=== PATIENT | male | born 1960 | race Caucasian/White ===

== ENCOUNTER 2016-06-15 19:52 | Emergency (ER) | payer BC ==
[~2016-06-15] VITALS: Ht 177.8 cm; Wt 105.0 kg
[~2016-06-15 19:52] MED LIST: ASPI1TAB7 PO; CITA20TA4 PO; FORT10GE TOP; HYDR-3580 PO; LISI-360 PO; PRAV40TA PO
[2016-06-15 19:57] VITALS: BP 158/84; PULSE 98; RESP 14; TEMP 98.4; O2SAT 96
[2016-06-15 20:07] VITALS: BP 142/86; PULSE 79; RESP 18; O2SAT 93
[2016-06-15] MEDS ORDERED: SODIUM CHLOR 0.9% 1000 ML INJ 1,000 ML IV ONE (20:13)
[2016-06-15] MEDS ORDERED: PRAV40TA2 PO (20:14)
[2016-06-15] MEDS ORDERED: TEST2.5G TOPICAL (20:14)
[2016-06-15] MEDS ORDERED: LISI10TA3 PO (20:14)
[2016-06-15] MEDS ORDERED: CITA20TA4 PO (20:14)
[2016-06-15] MEDS ORDERED: SODIUM CHLORIDE 0.9% FLUSH 5 ML FLUSH IVF PRN (20:15)
--- NOTE | 2016-06-15 20:19 | PD ---
HPI Chief Complaint: Syncope/Near-Syncope Time Seen by Provider: 20:07 Travel History International Travel<30 days: No Contact w/Intl Traveler<30days: No Traveled to known affect area: No History of Present Illness HPI The patient is a 56 years old. He arrives after having lost consciousness at home while on a barstool. He fell to the ground striking his forehead. After landing on the ground he remained unconscious for about 30 seconds as witnessed by his . His eyes were rolled into the back of his head and his head was shaking somewhat as described by . There was no tongue laceration or oropharyngeal trauma. The patient had no fecal or urinary incontinence. She activated EMS and the patient was brought here. While in the waiting room he had a second period of loss of consciousness, similar to the prior induration in quality. He has no history of epilepsy. He reports taking DayQuil for the past 2 days due to URI symptoms. The majority of the day was spent in bed today. In the ER the patient has no chest pain or shortness of breath. He has a very mild headache which he attributes to the frontal head trauma. Subjective fever reported today. No EtOH today. He reports a stress test within the past few months with normal results/low annual risk. PFSH Past Medical History Arthritis: Yes Asthma: No Autoimmune Disease: No Anxiety: Yes Depression: No Heart Rhythm Problems: No Cancer: No Cardiovascular Problems: No High Cholesterol: Yes Chemotherapy: No Chest Pain: No Congestive Heart Failure: No COPD: No Cerebrovascular Accident: No Diabetes: No Endocrine: No GERD: No Genitourinary: Yes (STENT IN URETER) Hepatitis: No Hiatal Hernia: Yes (UMBILICAL HERNIA) Hypertension: Yes Immune Disorder: No Kidney Stones: No Musculoskeletal: Yes (OSTEOARTHRITIS MAXINE KNEES) Neurologic: No Psychiatric: Yes (ANXIETY) Reproductive: No Respiratory: No Migraines: No Radiation Therapy: No Seizures: No Sickle Cell Disease: No Sleep Apnea: No Thyroid Disease: No Triglycerides - High: Yes Ulcer: No Past Surgical History Abdominal Surgery: No AICD: No Arteriovenous Shunt: No Body Medical Devices: NONE Cardiac Surgery: No Ear Surgery: No Endocrine Surgery: No Eye Surgery: No Genitourinary Surgery: Yes (VASECTOMY 1991) Gynecologic Surgery: Yes (J STENT IN URETER, VASECTOMY) Insulin Pump: No Joint Replacement: No Oral Surgery: Yes (TONSILLECTOMY) Pacemaker: No Thoracic Surgery: No Tonsillectomy: Yes Social History Alcohol Use: Yes (EVERY DAY X 2 DRINKS) Tobacco Use: No Substance Use: No Allergies-Medications (Allergen,Severity, Reaction): Coded Allergies: No Known Allergies (Verified , 06/15/16) Reported Meds & Prescriptions Reported Meds & Active Scripts Active Tamiflu (Oseltamivir Phosphate) 75 Mg Cap 75 Mg PO BID 7 Days Cefuroxime (Cefuroxime Axetil) 500 Mg Tab 500 Mg PO BID 7 Days Reported Testosterone Topical (Testosterone) 50 Mg/5 Gm Gel 50 Mg TOPICAL DAILY Citalopram (Citalopram Hydrobromide) 20 Mg Tab 20 Mg PO DAILY Pravastatin 40 Mg Tab 40 Mg PO DAILY Lisinopril 10 Mg Tab 10 Mg PO DAILY Review of Systems Except as stated in HPI: all other systems reviewed are Neg Physical Exam Narrative GENERAL: 56 yo M, NAD, AOx3, WNWD SKIN: Warm and dry. Trace abrasion abrasion nasal bridge and L upper lip without laceration. HEAD: Atraumatic. Normocephalic. EYES: Pupils equal and round. No scleral icterus. No injection or drainage. ENT: No nasal bleeding or discharge. Mucous membranes pink and moist. NECK: Trachea midline. No JVD. CARDIOVASCULAR: Regular rate and rhythm. RESPIRATORY: No accessory muscle use. Clear to auscultation. Breath sounds equal bilaterally. GASTROINTESTINAL: Abdomen soft, non-tender, nondistended. Hepatic and splenic margins not palpable. MUSCULOSKELETAL: Extremities without clubbing, cyanosis, or edema. No obvious deformities. NEUROLOGICAL: Awake and alert. No obvious cranial nerve deficits. Motor grossly within normal limits. Five out of 5 muscle strength in the arms and legs. Normal speech. PSYCHIATRIC: Appropriate mood and affect; insight and judgment normal. Data Data Last Documented VS Vital Signs Date Time Temp Pulse Resp B/P Pulse Ox O2 Delivery O2 Flow Rate FiO2 06/15/16 22:34 94 18 155/80 95 Room Air 06/15/16 19:57 98.4 VS reviewed Orders Electrocardiogram (06/15/16 20:13) Basic Metabolic Panel (Bmp) (06/15/16 20:13) Complete Blood Count With Diff (06/15/16 20:13) Ckmb (Isoenzyme) Profile (06/15/16 20:13) Troponin I (06/15/16 20:13) Ct Brain W/O Iv Contrast(Rout) (06/15/16 20:13) Blood Glucose (06/15/16 20:13) Ecg Monitoring (06/15/16 20:13) Iv Access Insert/Monitor (06/15/16 20:13) Oximetry (06/15/16 20:13) Sodium Chloride 0.9% Flush (Ns Flush) (06/15/16 20:15) Sodium Chlor 0.9% 1000 Ml Inj (Ns 1000 M (06/15/16 20:13) Influenzae A/B Antigen (06/15/16 20:19) Ventilation & Perfusion Scan (06/15/16 ) CKMB (06/15/16 20:20) CKMB% (06/15/16 20:20) Chest, Single Ap (06/15/16 ) Cefuroxime (Ceftin) (06/15/16 23:00) Oseltamivir (Tamiflu) (06/15/16 23:00) Labs Laboratory Tests Test 06/15/16 20:20 White Blood Count 5.5 TH/MM3 Red Blood Count 5.82 MIL/MM3 Hemoglobin 16.9 GM/DL Hematocrit 50.1 % Mean Corpuscular Volume 86.1 FL Mean Corpuscular Hemoglobin 29.0 PG Mean Corpuscular Hemoglobin 33.7 % Concent Red Cell Distribution Width 14.4 % Platelet Count 90 TH/MM3 Mean Platelet Volume 9.2 FL Neutrophils (%) (Auto) 74.2 % Lymphocytes (%) (Auto) 15.5 % Monocytes (%) (Auto) 9.8 % Eosinophils (%) (Auto) 0.1 % Basophils (%) (Auto) 0.4 % Neutrophils # (Auto) 4.1 TH/MM3 Lymphocytes # (Auto) 0.8 TH/MM3 Monocytes # (Auto) 0.5 TH/MM3 Eosinophils # (Auto) 0.0 TH/MM3 Basophils # (Auto) 0.0 TH/MM3 CBC Comment AUTO DIFF Differential Total Cells 100 Counted Neutrophils % (Manual) 51 % Band Neutrophils % 27 % Lymphocytes % 13 % Monocytes % 6 % Neutrophils # (Manual) 4.5 TH/MM3 Metamyelocytes 3 % Differential Comment FINAL DIFF MANUAL Platelet Estimate LOW Platelet Morphology Comment CLUMPED Red Cell Morphology Comment NORMAL Sodium Level 138 MEQ/L Potassium Level 3.8 MEQ/L Chloride Level 103 MEQ/L Carbon Dioxide Level 26.3 MEQ/L Anion Gap 9 MEQ/L Blood Urea Nitrogen 17 MG/DL Creatinine 1.89 MG/DL Estimat Glomerular Filtration 37 ML/MIN Rate Random Glucose 124 MG/DL Calcium Level 8.6 MG/DL Total Creatine Kinase 170 U/L Creatine Kinase MB LESS THAN 0.5 NG/ML Troponin I LESS THAN 0.02 NG/ML MDM Medical Decision Making Medical Screen Exam Complete: Yes Emergency Medical Condition: Yes Medical Record Reviewed: Yes Differential Diagnosis Arrhythmia, vasovagal episode, anemia, hypotension, AAA, PE, ICH, fracture, occult infectious states, meningitis/encephalitis considered very unlikely Narrative Course EKG: NS, rate 82, no pre-excitation syndrome, no ischemic injury pattern Head CT: no acute injury/disease CBC & BMP Diagram 06/15/16 20:20 Band neutrophils 27% We had a long discussion about the patient's presentation, work up and careful discussion about a safe disposition. Pt has remained stable throughout his ER stay in the echo pod and prefers to go home. Fortunately he has excellent follow up with Dr Grant and he and his verbalized agreement to see her first thing in the morning. Band neutrophilia is of indeterminant significance though concerning for infectious process. Some of symptoms could reflect influenza. Assay could be false negative and empiric coverage with Tamiflu is considered reasonable. Ceftin additionally may confer somewhat broad spectrum coverage for possible bacterial etiologies and is preferred over standard arrhythmogenic agents as the patient is on citalopram. Family demonstrates good insight and are considered quite reliable. Strict return guidelines discussed in length. Critical Care Narrative Aggregate critical care time was 35 minutes. Time to perform other separately billable procedures was not included in the critical care time. My time did not include minutes spent treating any other patients simultaneously or on activities that did not directly contribute to the patient's treatment. The services I provided to this patient were to treat and/or prevent clinically significant deterioration that could result in: Inappropriate disposition with corollary risks inherent therein including arrhythmia, recurrent syncope, cardiopulmonary arrest and being lost to follow up I provided critical care services requiring my management, as noted below: Chart data review, documentation time, medication orders and management, vital sign assessments/reviewing monitor data, ordering and reviewing lab tests, ordering and interpreting/reviewing x-rays and diagnostic studies, care of the patient and discussion of the patient with the admitting physicians. Diagnosis Primary Impression: Seizure Additional Impressions: Loss of consciousness Bandemia without diagnosis of specific infection Referrals: DR GRANT 1 day Additional Instructions: You have a choice when it comes to health care, and we are glad that you chose [facility]. Hopefully, we have met your expectations on today's visit. You are welcome to return to [facility] at any time, as we are committed to meeting the health care needs of our community. Med/Other Pt SpecificInfo: Prescription(s) given Scripts Oseltamivir (Tamiflu)75 Mg Cap75 Mg PO BID 7 Days Ref 0 Prov:Eduard Cooley MD 06/15/16 Cefuroxime 500 Mg [id number] Mg PO BID 7 Days Ref 0 Prov:Eduard Cooley MD 06/15/16 Disposition: 01 DISCHARGE HOME Condition: Stable Eduard Cooley MD Jun 15, 2016 20:19
--- NOTE | 2016-06-15 20:39 | RADRPT ---
EXAM DATE/TIME: 06/15/2016 20:20 [facility] COMPARISON: No previous studies available for comparison. INDICATIONS : Syncope today, frontal contusion. RADIATION DOSE: 56.35 CTDIvol (mGy) MEDICAL HISTORY : Deep venous thrombosis. Hypertension. Hernia, umbilical. SURGICAL HISTORY : None. ENCOUNTER: Initial ACUITY: 1 day PAIN SCALE: 6/10 LOCATION: cranial TECHNIQUE: Multiple contiguous axial images were obtained of the head. Using automated exposure control and adj ustment of the mA and/or kV according to patient size, radiation dose was kept as low as reasonably a chievable to obtain optimal diagnostic quality images. FINDINGS: CEREBRUM: The ventricles are normal for age. No evidence of midline shift, mass lesion, hemorrhage or acute in farction. No extra-axial fluid collections are seen. POSTERIOR FOSSA: The cerebellum and brainstem are intact. The 4th ventricle is midline. The cerebellopontine angle i s unremarkable. EXTRACRANIAL: The visualized portion of the orbits is intact. SKULL: The calvaria is intact. No evidence of skull fracture. CONCLUSION: Negative noncontrast head CT. Ernie Gonzalez MD on June 15, 2016 at 20:38 Board Certified Radiologist. This report was verified electronically.
[2016-06-15 20:46] LABS: AUTOMATED NEUTROPHIL # 4.1 TH/MM3 (1.8-7.7); BASOPHIL % 0.4 % (0.0-2.0); EOSINOPHIL % 0.1 % (0.0-4.0); HEMATOCRIT 50.1 % (39.0-51.0); LYMPH % 15.5 % (9.0-44.0); LYMPHOCYTE # 0.8 TH/MM3 (1.0-4.8); MEAN CELL VOLUME 86.1 FL (80.0-100.0); MEAN CORPUSCULAR HGB CONC 33.7 % (32.0-36.0); MONO % 9.8 % (0.0-8.0); NEUT % 74.2 % (16.0-70.0); PLATELET COUNT 90 TH/MM3 (150-450); RED BLOOD COUNT 5.82 MIL/MM3 (4.50-5.90); RED CELL DISTRIBUTION WIDTH 14.4 % (11.6-17.2); WHITE BLOOD COUNT 5.5 TH/MM3 (4.0-11.0)
[2016-06-15 20:54] LABS: HEMO FLAGS AUTO DIFF
[2016-06-15 20:59] LABS: ANION GAP 9 MEQ/L (5-15); BICARBONATE 26.3 MEQ/L (21.0-32.0); BLOOD UREA NITROGEN 17 MG/DL (7-18); CHLORIDE 103 MEQ/L (98-107); GLOMERULAR FILTRATION RATE 37 ML/MIN (>89); POTASSIUM 3.8 MEQ/L (3.5-5.1); SODIUM (NA) 138 MEQ/L (136-145)
[2016-06-15 21:03] LABS: CREATINE KINASE 170 U/L (39-308)
[2016-06-15 21:10] VITALS: BP 151/80; PULSE 82; RESP 16; O2SAT 97
[2016-06-15 21:15] LABS: CKMB LESS THAN 0.5 NG/ML (0.5-3.6)
--- NOTE | 2016-06-15 21:24 | RADRPT ---
EXAM DATE/TIME: 06/15/2016 21:16 [facility] COMPARISON: No previous studies available for comparison. INDICATIONS : Syncope, fever. MEDICAL HISTORY : None. SURGICAL HISTORY : None. ENCOUNTER: Initial ACUITY: 1 day PAIN SCORE: 0/10 LOCATION: Bilateral chest FINDINGS: A single view of the chest demonstrates the lungs to be symmetrically aerated without evidence of mas s, infiltrate or effusion. The cardiomediastinal contours are unremarkable. Osseous structures are intact. CONCLUSION: No evidence of acute cardiopulmonary disease. Ernie Gonzalez MD on June 15, 2016 at 21:22 Board Certified Radiologist. This report was verified electronically.
[2016-06-15 21:32] LABS: BANDS 27 % (0-6); METAMYELOCYTES 3 % (0-1); NEUTROPHIL # MANUAL DIFF 4.5 TH/MM3 (1.8-7.7); POLYS (SEG NEUTROPHILS) 51 % (16-70); WBC DIFF SAMPLE 100
[2016-06-15 21:33] LABS: PLATELET ESTIMATE SMEAR LOW (NORMAL); PLATELET MORPHOLOGY CLUMPED (NORMAL); SCAN/DIFF FINAL DIFF MANUAL
--- NOTE | 2016-06-15 21:59 | RADRPT ---
EXAM DATE/TIME: 06/15/2016 21:28 [facility] COMPARISON: CHEST SINGLE AP, June 15, 2016, 21:16. INDICATIONS : Syncope with dyspnea. DOSE: 8.5 mCi Tc99m MAA IV 0.89 mCi Tc99m DTPA aerosol MEDICAL HISTORY : Hypertension. SURGICAL HISTORY : Tonsillectomy. Vasectomy. ENCOUNTER: Initial ACUITY: 1 day PAIN SCALE: 0/10 LOCATION: Chest. TECHNIQUE: Following five minutes of tidal breathing of DTPA aerosol, planar images of the lungs were performed in eight projections. The patient was then injected with MAA, and eight-view perfusion scan was perf ormed. FINDINGS: There is a homogeneous pattern of aerosol delivery to the periphery of both lungs. No focal ventilat ory defects are seen. The perfusion lung scan demonstrates a homogenous pattern of uptake in both lungs. No segmental or s ubsegmental defects are seen. CONCLUSION: Homogeneous perfusion. Low probability for pulmonary embolus. Ernie Gonzalez MD on June 15, 2016 at 21:56 Board Certified Radiologist. This report was verified electronically.
[2016-06-15 22:34] VITALS: BP 155/80; PULSE 94; RESP 18; O2SAT 95
[2016-06-15] MEDS ORDERED: OSEL75 PO (22:48)
[2016-06-15] MEDS ORDERED: CEFU1TAB20 PO (22:48)
[2016-06-15] MEDS ORDERED: CEFUROXIME AXETIL 500 MG TAB PO ONE (23:00)
[2016-06-15] MEDS ORDERED: OSELTAMIVIR PHOSPHATE 75 MG CAP PO ONE (23:00)
--- NOTE | 2016-06-16 14:33 | EKG ---
Date Performed: 06/15/2016 Time Performed: 20:14:05 PTAGE: 56 years EKG: Sinus rhythm NORMAL ECG PREVIOUS TRACING : 12/31/2012 23.24 Since previous tracing, no significant change noted DOCTOR: Rosanne Coleman Interpretating Date/Time 06/16/2016 14:24:25
== END 2016-06-15 23:15 | disposition home or self-care (01) ==
LOC: NEPE 19:52
DX: R56.9 Unspecified convulsions (principal); R55 Syncope and collapse; D72.825 Bandemia; E78.00 Pure hypercholesterolemia, unspecified; I10 Essential (primary) hypertension; Z87.448 Personal history of other diseases of urinary system; Z86.59 Personal history of other mental and behavioral disorders
CPT/HCPCS: 70450; 71010; 78582; 80048; 82550; 82552; 84484; 85007; 85027; 87804; 93005; 96360; 99291; A9540; A9567; J7030